=== PATIENT | male | born 1955 | race Caucasian/White ===

== ENCOUNTER → 2020-12-05 | Outpatient (CLI) | payer MEDICARE ==
[~2020-12-05] MED LIST: ALLOPURINOL100 MG PO; FOLIC ACID1 MG PO; GLIMEPIRIDE2 MG PO; METFORMIN HCL500 MG PO; PANTOPRAZOLE SO40 MG PO; VITAMIN B-1 PO; VITAMIN B-121000 MCG PO; WELCHOL625 MG PO
== END ==
LOC: MRI 09:31
PROVIDERS: ATTEND Specialist
DX: S83.242A Other tear of medial meniscus, current injury, left knee, initial encounter (principal)